=== PATIENT | female | born 1965 | race African-American/Black ===

== ENCOUNTER 2020-04-13 14:49 | Observation (INO) | payer BC ==
[~2020-04-13 14:49] MED LIST: Iopamidol-370 76% 500 ML 1 ML ONE
--- NOTE | 2020-04-13 15:08 | RAD ---
Exam: Chest one view HISTORY:Chest pain. Sharp in nature. Comparison: 08/03/2014 FINDINGS: Cardiac silhouette: Normal Aorta: Slight elongation Pulmonary vessels: Normal Costophrenic angles: Clear LUNGS: No masses or consolidation. Pneumothorax: None Osseous abnormalities: None IMPRESSION: No acute cardiopulmonary process.
[2020-04-13 15:45] LABS: #Eosinphils 0.1 thou/uL (0.0-0.7); #Lymphocytes 1.8 thou/uL (1.20-3.40); #Monocytes 0.4 thou/uL (0.11-0.59); #Neutrophils 1.6 thou/uL (1.40-6.50); %Basophils 0.4 % (0.0-1.0); %Eosinophils 1.6 % (0.0-10.0); %Monocytes 10.7 % (0.0-10.0); %Neutrophils 41.2 % (42.0-75.0); Hemoglobin 12.4 g/dL (12.0-16.0); Mean Corpuscular HGB CONC 34.3 g/dL (32.0-36.0); Mean Corpuscular Volume 90.6 fL (78.0-98.0); Mean Platelet Volume 8.2 fL (7.4-10.4); Platelet Count 315 thou/uL (130-400); RBC Distribution Width 11.5 % (11.5-14.5); Red Blood Cell (RBC) Count 3.99 mill/uL (4.20-5.40); White Blood Cell (WBC) Count 3.9 thou/uL (4.8-10.8)
[2020-04-13] MEDS ORDERED: Potassium Chloride 20 MEQ TAB ONE (16:30)
[2020-04-13] MEDS ORDERED: Aspirin 325 MG TAB ONE (16:30)
[2020-04-13 16:36] LABS: Anion Gap 13 mmol/L (10-20); BUN (Urea Nitrogen) 15 mg/dL (9.8-20.1); Calc. Creatinine Clearance 0 mL/min (70-130); Carbon Dioxide 30 mmol/L (22-29); Chloride 97 mmol/L (98-107); Estimated GFR-MDRD 61; Sodium 137 mmol/L (136-145)
[2020-04-13 16:37] LABS: ALT (SGPT) 15 U/L (8-55); AST (SGOT) 22 U/L (5-34); Albumin 4.2 g/dL (3.5-5.0); Alkaline Phosphatase 53 U/L (40-110); Bilirubin, Total 0.5 mg/dL (0.2-1.2); Calcium 9.6 mg/dL (7.8-10.44); Globulin 3.7 g/dL (2.4-3.5); Glucose 122 mg/dL (70-105); Lipase 19 U/L (8-78); Potassium 2.8 mmol/L (3.5-5.1); Protein, Total 7.9 g/dL (6.0-8.3)
--- NOTE | 2020-04-13 17:09 | CT ---
CT PULMONARY ANGIOGRAM WITH IV CONTRAST AND 3D POSTPROCESSING: Date: 04/13/2020 HISTORY: Chest pain. FINDINGS: There is a small filling defect in a right upper lobe pulmonary arterial branch. It cannot be said wi th certainty if this is due to artifact or an embolus. No evidence of thoracic aortic aneurysm or dissection is seen. No pleural or pericardial effusions ar e identified. No pneumothoraces, focal areas of consolidation, lung nodules, or masses are identified . There are degenerative changes in the spine. Upper abdominal tomograms are unremarkable. IMPRESSION: Artifact versus small embolus in a right upper lobe pulmonary arterial branch. Discussed over the telephone with ER physician, Dr. Vignesh Taylor, at 1628 hours. CODE CR. POS: OFF
--- NOTE | 2020-04-13 17:54 | PDOC.FPRHP ---
- History of Present Illness Chief Complaint: chest pain History of Present Illness: Pt is a 54 yo female with PMH of HTN, CKDII, and anxiety who presents to the ED for chest pain that began last night. She describes the pain as a sharp, shooting pain in the center of her chest with radiation to her back. She reports that the pain is worse with movement and breathing. She also reports that she is tender in the distribution of the pain. She has had a similar episode in the past and was diagnosed with anxiety, but has not been on medication for the anxiety due to side effects of the medication. She also reports some tingling in her right arm that has improved. She denies diaphoresis, N/V. She endorses chronic constipation for which she frequently takes laxatives. ED Course: 325mg ASA & 40mEq of KCl EKG: NSR Trops: negative x2 Chest Xray: no acute cardiopulmonary process CTA: artifact vs. 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 Denies tobacco/drug use. Reports minimal alcohol. - Review of Systems General: denies: fever/chills, weight/appetite/sleep changes Eyes: denies: eye pain, vision changes ENT: denies: nasal congestion, rhinorrhea Respiratory: denies: cough, congestion, shortness of breath Cardiovascular: reports: chest pain. denies: palpitation, edema Gastrointestinal: reports: constipation. denies: nausea, vomiting, diarrhea, abdominal pain, GI bleeding Genitourinary: denies: dysuria, polyuria Skin: denies: rashes, lesions, jaundice Musculoskeletal: denies: pain, tenderness Neurological: reports: numbness. denies: syncope, weakness Psychological: reports: anxiety. denies: depression - Vital signs BP: 120/72 HR: 73 RR: 20 Tmax: 98.2 Pox: 100% on RA Wt: 86 kg - Physical Exam Constitutional: NAD, awake, alert and oriented HEENT: normocephalic and atraumatic, grossly normal vision, grossly normal hearing Neck: supple, FROM -Chest: Tender to palpation over sternum and right trap. Heart: RRR, normal S1/S2, no murmurs/rubs/gallops, no edema Lungs: CTAB, no respiratory distress, good air movement, no rales/rhonchi, no wheezing, no retractions Abdomen: soft, non-tender, bowel sounds present, no masses/distention Musculoskeletal: normal structure, normal tone, ROM grossly normal Neurological: no focal deficit, CN II-XII intact, normal sensation Skin: no rash/lesions, no jaundice Heme/Lymphatic: no unusual bruising or bleeding, no purpura, no petechia Psychiatric: normal mood and affect, intact recent and remote memory FMR H&P: Results - Labs Result Diagrams: 04/13/20 15:34 04/13/20 15:34 Lab results: WBC 3.9 thou/uL (4.8-10.8) L 04/13/20 15:34 Hgb 12.4 g/dL (12.0-16.0) 04/13/20 15:34 Hct 36.1 % (36.0-47.0) 04/13/20 15:34 MCV 90.6 fL (78.0-98.0) 04/13/20 15:34 Plt Count 315 thou/uL (130-400) 04/13/20 15:34 Neutrophils % 41.2 % (42.0-75.0) L 04/13/20 15:34 Sodium 137 mmol/L (136-145) 04/13/20 15:34 Chloride 97 mmol/L (98-107) L 04/13/20 15:34 Carbon Dioxide 30 mmol/L (22-29) H 04/13/20 15:34 BUN 15 mg/dL (9.8-20.1) 04/13/20 15:34 Creatinine 1.13 mg/dL (0.6-1.1) H 04/13/20 15:34 Glucose 122 mg/dL (70-105) H 04/13/20 15:34 Calcium 9.6 mg/dL (7.8-10.44) 04/13/20 15:34 Total Bilirubin 0.5 mg/dL (0.2-1.2) 04/13/20 15:34 AST 22 U/L (5-34) 04/13/20 15:34 ALT 15 U/L (8-55) 04/13/20 15:34 Alkaline Phosphatase 53 U/L (40-110) 04/13/20 15:34 Serum Total Protein 7.9 g/dL (6.0-8.3) 04/13/20 15:34 Albumin 4.2 g/dL (3.5-5.0) 04/13/20 15:34 Lipase 19 U/L (8-78) 04/13/20 15:34 - EKG Interpretation EKG: NSR, rate of 64, artifact present - Radiology Interpretation Other Status: report reviewed by me Additional comment: CTA: Artifact vs. Small PE in right upper lobe pulmonary arterial branch Chest x-ray Status: image reviewed by me, report reviewed by me Additional comment: No acute cardiopulmonary process FMR H&P: A/P - Problem List (1) Atypical chest pain Current Visit: Yes Status: Acute Code(s): R07.89 - OTHER CHEST PAIN (2) HTN (hypertension) Current Visit: Yes Status: Chronic Code(s): I10 - ESSENTIAL (PRIMARY) HYPERTENSION (3) Anxiety Current Visit: Yes Status: Chronic Code(s): F41.9 - ANXIETY DISORDER, UNSPECIFIED (4) Acute kidney injury superimposed on CKD Current Visit: Yes Status: Acute Code(s): N17.9 - ACUTE KIDNEY FAILURE, UNSPECIFIED; N18.9 - CHRONIC KIDNEY DISEASE, UNSPECIFIED (5) Hypokalemia Current Visit: Yes Status: Acute Code(s): E87.6 - HYPOKALEMIA (6) Pulmonary emboli Current Visit: Yes Status: Acute Code(s): I26.99 - OTHER PULMONARY EMBOLISM WITHOUT ACUTE COR PULMONALE - Plan Possible Pulmonary Embolism -reports pleuritic chest pain, no history of recent travel, surgery, or cancer; likely unprovoked -s/p 325 aspirin in ED -CTA: artifact vs. small PE in right -will give one time dose of therapeutic lovenox tonight, will discuss continuation of therapeutic anticoagulation pending further evaluation -doppler scan of BLE ordered -consider perfusion scan tomorrow after further discussion with radiology Atypical Chest Pain 2/2 to PE vs. MSK vs. Anxiety -EKG: NSR -Trops negative x2 -Hx of chest pain related to anxiety -see above regarding possible PE -will continue to monitor on tele -HEART score: 2 -BNP, TSH ordered -could consider stress test in outpatient setting Hypokalemia -likely 2/2 to laxative use -s/p 40 mg K in ED -will give additional 40 mg, repeat BMP tomorrow morning -Mag, phos ordered, will replete as needed JACKSON on suspected CKDII -likely 2/2 to dehydration -mIVF: LR @ 125 mls/hr Anxiety -Atarax available PRN HTN -continue home medication PCP: Jeff Diet: Heart healthy Fluids: mIVF LR @ 125 mls/hr Code: FULL PPx: see above for therapeutic Lovenox discussion Dispo: admit to tele for further observation and evaluation; likely LOS < 48 hrs. FMR H&P: Upper Level - Plan Date/Time: 04/13/201752 IInes, have evaluated this patient and agree with findings/plan as outlined by sales management intern resident. Pertinent changes/additions are listed here. 54YOF with a PMH notable for HTN, CKDII, and anxiety who presented to the ED for evaluation for chest pain. Reports the pain began last night and is reported as central, sharp intermittent pain that is exacerbated by movement and deep inspiration. Denies any associated N/V or diaphoresis. States she has had similar pain before and at that time was diagnosed with anxiety. Does report issues with constipation that she treats with PRN laxative use causing diarrhea. Denies any cardiac history & no known FH as she was adopted. On presentation to the ED her vitals were WNLs. Workup was notable for a hypokalemia with a K of 2 .8, hypochloremia with a Chloride level of 97, and an JACKSON with a Cr of 1.13 and eGFR of 61. Her EKG & initial troponin were notable for NSR w/ LVH & negative x2. Her CXR showed no acute findings but a CTA of her chest was notable for artifact vs. a small embolus in R upper lobe pulmonary artery branch. She was given 325mg of ASA & 40mEQ of KCl in the ER. On exam she was in NAD & satting 100% on RA with a HR in the 70s. Plan will be to admit her to telemetry for electrolyte replacement and monitoring overnight for atypical chest pain. Will give an additional 40mEq of K & recheck a level in the AM. Will check Mg & phos levels & replace PRN. Will also check a TSH & BNP. Regarding the possible PE, will treat with a 1 time dose of Th lovenox overnight and consider obtaining a perfusion scan in the AM for confirmation of an embolus per the ER residents report of radiology recs. Will resume her home meds for BP control & have PRN atarax available for anxiety & PRN miralax & senokot for constipation. Addendum - Attending - Attending Attestation Date/Time: 04/13/202009 I personally evaluated the patient and discussed the management with Dr. Bradley/Jun I agree with the History, Examination, Assessment and Plan documented above with any addition or exceptions noted below. 54 yo AAF PMH HTN and anxiety. presents with right sided chest pain that started last night. No hx VTE or CAD. States she has chronic diarrhea that only responds to linzess and has been taking large quantities of OTC laxatives to help with constipation and states this has lowered her potassium in the past. recently started OTC potassium supplementation. Exam unremarkable except for right sided chest wall tenderness to palpation. Labs remarkable for potassium 2.8 and neg trop x2. CTA chest showed possible right upper lobe PE vs motion artifact. Observation for hypokalemia and to further evaluate PE. will discuss additional imaging with radiology tomorrow morning. r/o DVT with venous doppler. Repeat BMP tomorrow. start linzess if available in the formulary. Obs, tele, <2 midnights.
[2020-04-13 18:28] LABS: Phosphorus 2.8 mg/dL (2.3-4.7)
[2020-04-13 19:09] LABS: Troponin I 0.013 ng/mL (< 0.028)
[2020-04-13] MEDS ORDERED: Senokot S 8.6-50 MG TAB PO PRN (19:52)
[2020-04-13] MEDS ORDERED: Polyethylene Glycol 3350 17 GM Packet PO PRN (19:52)
[2020-04-13 21:00] VITALS: BMI 31.7
[2020-04-13] MEDS ORDERED: hydrOXYzine 25 MG TAB PO PRN (21:21)
[2020-04-13] MEDS ORDERED: Acetaminophen 325 MG TAB PO PRN ×2 (21:21→22:24)
[2020-04-13] MEDS ORDERED: Enoxaparin Sodium 100 MG/ML SYRINGE SC SCH (21:30)
[2020-04-13] MEDS: Potassium Chloride 20 MEQ TAB PO SCH (21:43)
[2020-04-13] MEDS: Lactated Ringer's 1,000 ML IV SCH (21:57)
--- NOTE | 2020-04-13 22:01 | ULT ---
BILATERAL LOWER EXTREMITY VENOUS DOPPLER: 04/13/20 PROVIDED CLINICAL HISTORY: Bilateral lower extremity pain. FINDINGS: Díaz scale and color Doppler sonography with spectral analysis was performed of the bilateral common femoral, femoral, popliteal, posterior tibial, greater saphenous and profunda femoral veins demonstra ting a normal sonographic appearance to each. IMPRESSION: No sonographic evidence for lower extremity deep venous thrombosis. POS: INES
[2020-04-13] MEDS ORDERED: Ibuprofen 800 MG TAB PO PRN (22:24)
[2020-04-14] MEDS: Potassium Chloride 20 MEQ TAB PO SCH (01:46)
[2020-04-14 04:58] LABS: Anion Gap 12 mmol/L (10-20); BUN (Urea Nitrogen) 22 mg/dL (9.8-20.1); Calc. Creatinine Clearance 87 mL/min (70-130); Calcium 8.9 mg/dL (7.8-10.44); Carbon Dioxide 28 mmol/L (22-29); Chloride 103 mmol/L (98-107); Estimated GFR-MDRD 69; Glucose 103 mg/dL (70-105); Potassium 3.4 mmol/L (3.5-5.1); Sodium 140 mmol/L (136-145)
--- NOTE | 2020-04-14 05:30 | PDOC.FM ---
- Subjective Subjective: Pt resting comfortably in bed this AM. No acute events overnight. States that she is feeling well this AM. No chest pain or SOB overnight. Telemetry showed sinus bradcardia with HRs in 55-60s however, patient has not had symptoms of lightheadedness/dizziness. - Objective Vital Signs & Weight: Vital Signs (12 hours) Temp Pulse Resp BP Pulse Ox 04/14/20 03:09 97.9 F 53 L 16 118/66 97 04/14/20 01:56 99 04/13/20 23:21 98.0 F 67 20 120/69 99 04/13/20 20:50 98.6 F 68 18 136/71 99 Weight Weight 86.455 kg I&O: 04/12/20 04/13/20 04/14/20 06:59 06:59 06:59 Intake Total 590 Output Total 200 Balance 390 Result Diagrams: 04/13/20 15:34 04/14/20 04:29 Phys Exam - Physical Examination Constitutional: NAD HEENT: PERRLA Neck: no nodes Respiratory: no wheezing, no rales, no rhonchi Cardiovascular: RRR, no significant murmur, no rub Gastrointestinal: soft, non-tender, no distention Musculoskeletal: no edema, pulses present Neurological: non-focal, normal sensation Lymphatic: no nodes Psychiatric: normal affect, A&O x 3 Skin: no rash, normal turgor, cap refill <2 seconds Dx/Plan - Plan Plan: Possible Pulmonary Embolism -reports pleuritic chest pain, no history of recent travel, surgery, or cancer; likely unprovoked -s/p 325 aspirin in ED -CTA: artifact vs. small PE in right -given one time dose of lovenox, due to negative d-dimer do not see need for continuation of therapeutic anticoagulation -doppler scan of BLE showed no DVT -d-dimer is less than 0.27 Atypical Chest Pain 2/2 to PE vs. MSK vs. 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 likely d/c today. Addendum - Attending - Attending Attestation Date/Time: 04/14/20 4739 I personally evaluated the patient and discussed the management with Dr. Saldaña. I agree with the History, Examination, Assessment and Plan documented above with any addition or exceptions noted below. Clinical picture is not consistent with PE.
[2020-04-14] MEDS: Lactated Ringer's 1,000 ML IV SCH (05:46)
[2020-04-14] MEDS ORDERED: Potassium Chloride 20 MEQ TAB PO SCH (08:15)
[2020-04-14 11:41] VITALS: BP 123/58; TEMP 97.9
--- NOTE | 2020-04-15 03:24 | DIS ---
DATE OF ADMISSION: 04/13/2020 DATE OF DISCHARGE: 04/14/2020 RESIDENT: Martina Saldaña DO ADMITTING ATTENDING: Alexys Norman MD DISCHARGE ATTENDING: Elfego Small MD CONSULT: None. PROCEDURES: Chest x-ray done on 04/13 showed no acute cardiopulmonary process. CTA on 04/13 showed artifact versus small embolism in the right upper lobe pulmonary arterial branch. Bilateral venous Doppler done on 04/13 showed no sonographic evidence for lower extremity deep venous thrombosis. PRIMARY DIAGNOSIS: Atypical chest pain. SECONDARY DIAGNOSES: 1. Anxiety. 2. Hypertension. 3. Chronic kidney disease, 2. DISCHARGE MEDICATIONS: 1. Aspirin 81. 2. Lisinopril 40. 3. Hydrochlorothiazide 25. 4. Linzess 290 mcg p.o. daily. DISCONTINUED MEDICATIONS: MiraLAX and Senokot. HISTORY OF PRESENT ILLNESS/HOSPITAL COURSE: Patient is a 54-year-old female, with past medical history of hypertension; CKD 2 and anxiety, who presented to the ED for chest pain that had begun the night before admission. She had described the pain as sharp, shooting in the center of her chest with radiation to her back. She reported that the pain was worse with movement and breathing. She also reported that she was tender in the distribution of the left-sided chest pain. She had a similar episode in the past and was diagnosed with anxiety, but has not been on medication for her anxiety due to the side effects of the medications. She also had reported some tingling in her right arm that was improved after a couple of hours in the ED. She denied diaphoresis, nausea, or vomiting. She endorsed chronic constipation, for which she frequently takes laxatives. Patient was found to be hypokalemic initially with a potassium of 2.8. This was suspected to be due to her laxative use. A CTA was done, which had the findings as shown above. However, a D-dimer was not performed before the CTA was taken. Patient's vitals were within normal limits. She was not tachycardic or tachypneic or hypoxic at any point in time. A Doppler scan of her bilateral lower extremities was also ordered, which showed no DVTs in her lower extremities. She was given a one time dose of therapeutic Lovenox after the finding on the CTA. Next morning, patient stated that she was feeling better. The chest pain had slightly improved. It was still reproducible on palpation. D-dimer was done that morning, which was low and with the picture of patient's presentation and results of CTA, it was determined that no further evaluation was necessary. Patient was sent home on Linzess for her IBS and she was told to stop taking her laxatives as this would improve her symptoms. She was told to take naproxen for 1 week for her MSK chest pain. DISPOSITION: Stable. DISCHARGE LOCATION: Home. DIET: Regular. ACTIVITY: As tolerated. FOLLOWUP: Follow up in 1 to 2 weeks with [facility], Dr. Francisco Aguilar MD. Job ID: [id number] MTDD
== END 2020-04-14 13:14 | disposition home or self-care (01) ==
LOC: ERS 14:49 → 2SW 17:09
PROVIDERS: ADMIT Family Medicine; ATTEND Family Medicine
DX: R07.89 Other chest pain (principal); I12.9 Hypertensive chronic kidney disease with stage 1 through stage 4 chronic kidney disease, or unspecified chronic kidney disease; N18.9 Chronic kidney disease, unspecified; N17.9 Acute kidney failure, unspecified; F41.9 Anxiety disorder, unspecified; F32.9 Major depressive disorder, single episode, unspecified; K58.0 Irritable bowel syndrome with diarrhea; I26.99 Other pulmonary embolism without acute cor pulmonale; E87.6 Hypokalemia; Z88.2 Allergy status to sulfonamides
CPT/HCPCS: 36415; 71045; 71275; 80048; 80053; 83690; 83735; 83880; 84100; 84443; 84484; 85025; 85379; 93005; 93970; 94760; 96361; 96372; G0378; J1650; Q9967

== ENCOUNTER 2020-04-15 20:24 | Emergency (ER) | payer BC ==
--- NOTE | 2020-04-15 20:47 | RAD ---
RADIOGRAPH CHEST 1 VIEW: DATE: 04/15/2020 HISTORY: 54-year-old female with chest pain FINDINGS: The thoracic aorta is tortuous and ectatic. There is no evidence of airspace density, pulmonary edema , or cardiomegaly, pneumothorax. The lateral costophrenic angles are not effaced. IMPRESSION: 1) No acute pulmonary findings. 2) ectasia of thoracic aorta.
[2020-04-15 21:34] LABS: Hemoglobin 12.5 g/dL (12.0-16.0); Mean Corpuscular HGB CONC 34.2 g/dL (32.0-36.0); Mean Corpuscular Hemoglobin 31.3 pg (27.0-31.0); Mean Corpuscular Volume 91.5 fL (78.0-98.0); Mean Platelet Volume 7.8 fL (7.4-10.4); Platelet Count 314 thou/uL (130-400); RBC Distribution Width 11.7 % (11.5-14.5); Red Blood Cell (RBC) Count 3.99 mill/uL (4.20-5.40); White Blood Cell (WBC) Count 3.9 thou/uL (4.8-10.8)
[2020-04-15 21:53] LABS: ALT (SGPT) 21 U/L (8-55); AST (SGOT) 25 U/L (5-34); Albumin 4.1 g/dL (3.5-5.0); Alkaline Phosphatase 51 U/L (40-110); Anion Gap 13 mmol/L (10-20); BUN (Urea Nitrogen) 12 mg/dL (9.8-20.1); Bilirubin, Total 0.3 mg/dL (0.2-1.2); Calc. Creatinine Clearance 0 mL/min (70-130); Calcium 9.8 mg/dL (7.8-10.44); Carbon Dioxide 29 mmol/L (22-29); Chloride 102 mmol/L (98-107); Estimated GFR-MDRD 60; Globulin 3.4 g/dL (2.4-3.5); Glucose 103 mg/dL (70-105); Potassium 3.4 mmol/L (3.5-5.1); Protein, Total 7.5 g/dL (6.0-8.3); Sodium 141 mmol/L (136-145)
[2020-04-15 22:09] LABS: Band 4 % (5-11); Eosinophils 1 % (0-10); Lymphocytes 55 % (21-51); MDiff Complete? YES; Monocytes 9 % (0-10); Neutrophil 31 % (42-75)
[2020-04-15] MEDS ORDERED: Metoclopramide HCl 10 MG/2 ML VIAL ONE (22:16)
[2020-04-15] MEDS ORDERED: Acetaminophen 500 MG TAB ONE (22:16)
[2020-04-15] MEDS ORDERED: diphenhydrAMINE 50 MG/ML VIAL ONE (22:16)
[2020-04-15] MEDS ORDERED: Diazepam 10 MG/2 ML SYRINGE ONE (23:03)
--- NOTE | 2020-04-15 23:30 | CT ---
CT BRAIN NONCONTRAST: DATE: 04/15/2020 HISTORY: 54-year-old female with headache FINDINGS: There is no evidence of acute intra-axial or extra-axial hemorrhage. There is no midline shift or any other mass effect. There is no extra-axial fluid collection. There is no evidence of obstructive hydrocephalus. Calvarium is intact. IMPRESSION: No acute intracranial findings.
--- NOTE | 2020-04-26 16:43 | EKG ---
Test Reason : Blood Pressure : / mmHG Vent. Rate : 068 BPM Atrial Rate : 068 BPM P-R Int : 174 ms QRS Dur : 098 ms QT Int : 380 ms P-R-T Axes : 036 019 026 degrees QTc Int : 404 ms Normal sinus rhythm Nonspecific T wave abnormality Abnormal ECG Confirmed by WILBERTO PALOMO DO ([id number]), graphic editor DONNELL TREVIÑO ([id number]) on 04/26/2020 4:42:20 PM Referred By: Confirmed By:WILBERTO PALOMO DO
== END 2020-04-16 01:05 | disposition home or self-care (01) ==
LOC: ERS 20:24
DX: R07.9 Chest pain, unspecified (principal); R51 Headache; I10 Essential (primary) hypertension; F32.9 Major depressive disorder, single episode, unspecified; Z79.899 Other long term (current) drug therapy
CPT/HCPCS: 70450; 71045; 80053; 84484; 85025; 93005; 96361; 96365; 96375; 96376; J1200; J2765; J3360

== ENCOUNTER 2020-05-06 01:24 | Emergency (ER) | payer BC ==
[2020-05-06] MEDS ORDERED: Ketorolac Tromethamine 30 MG/ML VIAL ONE (02:34)
== END 2020-05-06 02:17 | disposition home or self-care (01) ==
LOC: ERS 01:24
DX: M70.51 Other bursitis of knee, right knee (principal); I10 Essential (primary) hypertension; F41.9 Anxiety disorder, unspecified; F32.9 Major depressive disorder, single episode, unspecified; Z79.899 Other long term (current) drug therapy
CPT/HCPCS: 96372; 99283; J1885

== ENCOUNTER 2020-10-06 12:30 | Outpatient (CLI) | payer BC | END 2020-10-06 12:31 | disposition home or self-care (01) | LOC: BICMAMMO 12:30 | PROVIDERS: ATTEND Student in an Organized Health Care Education/Training Program | DX: Z12.31 Encounter for screening mammogram for malignant neoplasm of breast (principal) | CPT/HCPCS: 77063; 77067 ==

== ENCOUNTER 2025-05-27 14:08 | Outpatient (CLI) | payer OTHER | END 2025-05-27 14:09 | disposition home or self-care (01) | LOC: BICMAMMO 14:08 | DX: Z78.0 Asymptomatic menopausal state (principal); M85.851 Other specified disorders of bone density and structure, right thigh | CPT/HCPCS: 77080 ==